=== PATIENT | male | born 1955 | race American Indian/Alaskan Native ===

== ENCOUNTER 2017-04-07 18:38 | Inpatient (IN) | payer MEDICAID, MEDICARE ==
[2017-04-07 18:39] VITALS: BMI 18.8
--- NOTE | 2017-04-07 19:47 | C.PDOC ---
History Of Present Illness The patient presents to the ED as a transfer from [facility]. Patient was evaluated prior to ED arrival and has been medically cleared and accepted for admission by Dr. Brink for detox. Patient has no other complaints at this time. Time Seen by Provider: 04/07/17 19:45 Chief Complaint (Nursing): Psychiatric Evaluation History Per: Patient History/Exam Limitations: no limitations Onset/Duration Of Symptoms: Hrs Current Symptoms Are (Timing): Still Present Suicide/Self Injury Attempted (Context): None Modifying Factor(s): None Involuntary Hold By: None Recent travel outside of the [place]: No Additional History Per: Patient Past Medical History Reviewed: Historical Data, Nursing Documentation, Vital Signs Vital Signs: Last Vital Signs Temp 97.9 F 04/07/17 19:00 Pulse 74 04/07/17 19:00 Resp 20 04/07/17 19:00 BP 157/86 H 04/07/17 19:00 Pulse Ox 99 04/07/17 20:24 - Medical History PMH: Arthritis, Bronchitis (Right after he had pneumonia.), Depression, HTN, Pneumonia ([id number]) Denies: Diabetes, Hepatitis, HIV, Chronic Kidney Disease, Seizures, Sexually Transmitted Disease Surgical History: Endoscopy, Tonsillectomy Denies: Pacemaker - [facility] Procedures EXERCISE TRMT MUSCULOSK LOW BACK/LE W ASSIST EQUIP (02/22/15) GAIT TRAINING/AMBULAT TREATMENT USING ASSIST EQUIPMENT (02/22/15) REPLACEMENT OF RIGHT HIP JOINT WITH METAL, OPEN APPROACH (02/20/15) Family History: States: Unknown Family Hx - Social History Hx Tobacco Use: Yes (3-4 per day) Hx Alcohol Use: Yes (Occasionally) Hx Substance Use: Yes - Immunization History Hx Tetanus Toxoid Vaccination: Yes Hx Influenza Vaccination: Yes Hx Pneumococcal Vaccination: Yes Review Of Systems Constitutional: Negative for: Fever, Chills Cardiovascular: Negative for: Chest Pain, Palpitations Respiratory: Negative for: Cough, Shortness of Breath Gastrointestinal: Negative for: Nausea, Vomiting, Abdominal Pain Skin: Negative for: Rash, Lesions, Jaundice, Bruising Neurological: Negative for: Weakness, Numbness Physical Exam - Physical Exam Appears: Non-toxic, No Acute Distress Chest: Symmetrical, No Deformity Cardiovascular: Rhythm Regular, No Murmur Respiratory: Normal Breath Sounds, No Rales, No Rhonchi, No Wheezing Extremity: Normal ROM Neurological/Psych: Oriented x3 Gait: Steady ED Course And Treatment O2 Sat by Pulse Oximetry: 99 (on RA) Pulse Ox Interpretation: Normal Disposition Discussed With Dr.: Pedro Brink Comment: accepted the pt on his service and took over the care at 7:46 PM Doctor Will See Patient In The: Hospital Counseled Patient/Family Regarding: Studies Performed, Diagnosis - Disposition Disposition: HOSPITALIZED Disposition Time: 19:46 Condition: FAIR - POA Present On Arrival: None - Clinical Impression Clinical Impression: Alcohol abuse - Scribe Statement The provider has reviewed the documentation as recorded by the Scribe (Ana Maria Baer) Provider Attestation: All medical record entries made by the Scribe were at my direction and personally dictated by me. I have reviewed the chart and agree that the record accurately reflects my personal performance of the history, physical exam, medical decision making, and the department course for this patient. I have also personally directed, reviewed, and agree with the discharge instructions and disposition. Decision To Admit - Pt Status Changed To: Hospital Disposition Of: Inpatient - Admit Certification Admit to Inpatient:: After my assessment, the patient will require hospitalization for at least two midnights. This is because of the severity of symptoms shown, intensity of services needed, and/or the medical risk in this patient being treated as an outpatient. - InPatient: Physician Admission Certification: I certify that this patient requires 2 or more midnights of care for the following reason:: After my assessment, the patient will require hospitalization for at least two midnights. This is because of the severity of symptoms shown, intensity of services needed, and/or the medical risk in this patient being treated as an outpatient. - . Bed Request Type: Detox Admitting Physician: Pedro Brink Patient Diagnosis: Alcohol abuse
--- NOTE | 2017-04-07 20:02 | PCM.BM ---
<Lauryn Olivarez - Last Filed: 04/07/17 20:01> Treatment Plan Problems - Problems identified on initial assessmt potiential for opiate withdrawal Date Initiated: 04/07/17 Time Initiated: 20:01 Assessment reference: NA Status: Active Treatment assets and liabiliti Patient Assests: ADL independent, negotiates basic needs, cognitively intact Patient Liabilities: physical pain, substance abuse, medical problems - Milieu Protocol Maintain good personal hygiene: daily Encourage regular showers, daily Remind patient to perform daily oral care, daily Assist patient to perform ADL's Maintain personal safety: every shift Educate patient to report safety concerns to staff, every shift Monitor environment for contraband/sharps Medication safety: Monitor for expected outcome, potential side effects: every shift, Assess barriers to learning: every shift, Assess readiness for medication education: every shift <Pedro Brink - Last Filed: 04/08/17 14:15> - Diagnosis (1) Opioid use disorder, severe, dependence Status: Acute Interventions: 04/08/17 14:15 * Assess 7x/week regarding severity of withdrawal * Educate regarding risks, benefits, side effects and alternatives of medications * Use Motivational Interviewing for abstinence * Use CBT for relapse prevention * Medication management for withdrawal symptoms * Encourage medication assisted treatment *
[2017-04-07 21:30] VITALS: RESP 18
[2017-04-08] MEDS ORDERED: Aluminum Hydroxide/Magnesium Hydroxide Susp (30 mL) PO PRN (08:46)
[2017-04-08] MEDS: Multiple Vitamins Tab PO SCH (09:18)
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
[2017-04-09] MEDS: Multiple Vitamins Tab PO SCH (09:58)
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
[2017-04-10] MEDS: Multiple Vitamins Tab PO SCH (09:07)
[2017-04-10 09:36] VITALS: BP 160/90; PULSE 82; TEMP 97.9; O2SAT 100
--- NOTE | 2017-04-11 09:59 | PCM.PYCHPN ---
Psychiatric Progress Note - Psychiatric Progress Note Patient seen today, length of contact: 15 min Patient Chief Complaint: "I'm better, thanks to you" Problems Identified/Issues Discussed: He is seen, chart reviewed and case discussed Mood has improved Minimal wdw sxs with meds Slept "so so" After care is in the works, he can go to a rehab with Medicare in [place] but he is focused on [place] rehabs and is in touch. His belongings are in a [place] correction and they were worried about him bc he disapeared saying he is going to [facility], which he did, btw. [place] used Medication Change: Yes (detox changes daily) Medical Record Reviewed: Yes Mental Status Examination - Cognitive Function Orientation: Person, Place, Situation, Time Memory: Intact Attention: WNL Concentration: WNL Association: WNL Fund of Knowledge: WNL - Mood Mood: Anxious - Affect Affect: Broad - Speech Speech: Appropriate - Formal Thought Process Formal Thought Process: No Impairment - Suicidal Ideation Suicidal Ideation: No - Homicidal Ideation Homicidal Ideation: No Goal/Treatment Plan - Goal/Treatment Plan Need for Continued Stay: Discharge may exacerbated symptoms, Severe functional impairment Progress Toward Problem(s) and Goals/Treatment Plan: Contoinue detox Attend groups and activities Support and psychoed [place] and CBT Refer to a rehab
== END 2017-04-10 10:30 | disposition home or self-care (01) | DRG 895 ==
LOC: C.ER 18:38 → C.7D 19:45
PROVIDERS: ADMIT Psychiatry & Neurology Psychiatry; ATTEND Psychiatry & Neurology Psychiatry
PROC: HZ2ZZZZ Detoxification Services for Substance Abuse Treatment (ICD-10-PCS; principal; 2017-04-07)
PROC: HZ59ZZZ Individual Psychotherapy for Substance Abuse Treatment, Supportive (ICD-10-PCS; 2017-04-07)
PROC: HZ46ZZZ Group Counseling for Substance Abuse Treatment, Psychoeducation (ICD-10-PCS; 2017-04-07)
PROC: HZ90ZZZ Pharmacotherapy for Substance Abuse Treatment, Nicotine Replacement (ICD-10-PCS; 2017-04-07)
PROC: GZ3ZZZZ Medication Management (ICD-10-PCS; 2017-04-07)
DX: F11.23 Opioid dependence with withdrawal (principal); R45.851 Suicidal ideations; F32.9 Major depressive disorder, single episode, unspecified; F14.90 Cocaine use, unspecified, uncomplicated; F12.90 Cannabis use, unspecified, uncomplicated; F17.210 Nicotine dependence, cigarettes, uncomplicated; F10.10 Alcohol abuse, uncomplicated; I10 Essential (primary) hypertension; Z87.01 Personal history of pneumonia (recurrent)